=== PATIENT | female | born 1945 | race Caucasian/White ===

== ENCOUNTER 2017-11-20 16:36 | Emergency (ER) | payer OTHER ==
[2017-11-20 16:56] VITALS: BMI 31.3
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
[2017-11-20] MEDS ORDERED: TORADOL 60 MG VIAL IM ONE (20:51)
[2017-11-20] MEDS ORDERED: TORADOL 60 MG VIAL ONE (20:52)
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
[2017-11-20 21:04] VITALS: BP 139/79
== END 2017-11-20 21:04 | disposition home or self-care (01) ==
LOC: ER 17:18
DX: S20.20XA Contusion of thorax, unspecified, initial encounter (principal); S20.219A Contusion of unspecified front wall of thorax, initial encounter; S22.49XA Multiple fractures of ribs, unspecified side, initial encounter for closed fracture; S16.1XXA Strain of muscle, fascia and tendon at neck level, initial encounter; S43.409A Unspecified sprain of unspecified shoulder joint, initial encounter; V49.9XXA Car occupant (driver) (passenger) injured in unspecified traffic accident, initial encounter
CPT/HCPCS: 71250; 72125; 73030; 96372; 99283; 99285; J1885

== ENCOUNTER 2017-12-21 20:21 | Emergency (ER) | payer OTHER ==
[2017-12-21 20:28] VITALS: BP 173/80; BMI 30.1
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
[2017-12-21] MEDS ORDERED: TORADOL 30 MG VIAL IM ONE (21:57)
[2017-12-21] MEDS ORDERED: TORADOL 30 MG VIAL ONE (21:59)
== END 2017-12-21 22:18 | disposition home or self-care (01) ==
LOC: ER 20:21
DX: M17.11 Unilateral primary osteoarthritis, right knee (principal)
CPT/HCPCS: 73560; 96372; 99282; J1885